=== PATIENT | female | born 1980 | race Caucasian/White ===

== ENCOUNTER → 2018-12-04 | Outpatient (REF) | payer BC | LOC: M SFHCLERA 11:02 | PROVIDERS: ATTEND Nurse Practitioner Family | DX: J02.9 Acute pharyngitis, unspecified (principal) ==

== ENCOUNTER → 2019-09-27 | Outpatient (REF) | payer BC | LOC: M LAB LCGH 12:25 | PROVIDERS: ATTEND Family Medicine | DX: Z12.4 Encounter for screening for malignant neoplasm of cervix (principal) ==

== ENCOUNTER → 2020-02-15 | Outpatient (CLI) | payer BC ==
--- NOTE | 2020-02-16 15:17 | REP ---
Clinical: Cough and dyspnea . Comparison: None . Technique: PA and lateral. Findings: The mediastinum and cardiac silhouette are normal. The lung malone are clear and without acute consolidation, effusion, or pneumothorax. The skeletal structures are intact and normal. Impression: 1. No acute cardiopulmonary process. Electronically Signed by Juan Pablo Perkins MD 02/16/2020 03:09 P
== END ==
LOC: M RAD 11:09
PROVIDERS: ATTEND Physician Assistant
DX: R06.00 Dyspnea, unspecified (principal)

== ENCOUNTER → 2020-08-17 | Outpatient (CLI) | payer BC, SELFPAY ==
[~2020-08-17] MED LIST: METHACHOLINE KIT (J7674) INH ONE
--- NOTE | 2020-08-17 09:26 | PFTRPT ---
Height: 65.50 Inches Weight: 254.00 Lbs BSA: 2.20 Diagnosis: R06.00 DATE: 08/17/2020 ORDERED BY: Sharif Hui QUALITY: Study of excellent technical quality. PROCEDURE: Under protocol, methacholine was administered. Even after a maximum dose of 25 mg, or 188.875 CDUs, no provocation dose ever achieved. IMPRESSION: Negative methacholine challenge study. MTDD
== END ==
LOC: M CARPUL 08:19
PROVIDERS: ATTEND Physician Assistant
DX: R06.00 Dyspnea, unspecified (principal)
CPT/HCPCS: 94070; J7674

== ENCOUNTER → 2025-09-09 | Outpatient (CLI) | payer OTHER | LOC: M PLAIMG 08:29 | PROVIDERS: ATTEND Physician Assistant | DX: I27.29 Other secondary pulmonary hypertension (principal) ==